=== PATIENT | female | born 2000 | race Hispanic/Latino ===

== ENCOUNTER 2021-01-01 16:37 | Emergency (ER) | payer OTHER | END 2021-01-01 18:33 | disposition home or self-care (01) | LOC: CSHERS 16:37 | DX: S09.90XA Unspecified injury of head, initial encounter (principal); R29.700 NIHSS score 0; V89.2XXA Person injured in unspecified motor-vehicle accident, traffic, initial encounter | CPT/HCPCS: 70450 ==